=== PATIENT | male | born 1980 | race Caucasian/White ===

== ENCOUNTER 2023-12-04 12:35 | Emergency (ER) | payer BC, SELFPAY ==
[2023-12-04 12:44] VITALS: BP 149/89; PULSE 110; TEMP 36.7; O2SAT 97; BMI 30.5
[2023-12-04 13:07] VITALS: BP 142/96; PULSE 111; O2SAT 98
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
[2023-12-04] MEDS: ondansetron 2 mg/ML SDV 2 mL 4 MG IVP (13:32)
[2023-12-04 13:33] VITALS: RESP 16; O2SAT 97
[2023-12-04] MEDS: morphine 4 mg/mL SDV 1 mL IVP (13:33)
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
[2023-12-04] MEDS: iohexol 350 mg/mL 500 mL Btl (per mL) IV (13:48)
[2023-12-04 14:07] VITALS: BP 168/109; PULSE 102; O2SAT 96
[2023-12-04 15:06] VITALS: BP 168/109; PULSE 102; RESP 16; TEMP 36.7; O2SAT 96
== END 2023-12-04 15:07 | disposition home or self-care (01) ==
PROVIDERS: Emergency Provider Emergency Medicine
DX: S20.212A Contusion of left front wall of thorax, initial encounter (principal); S80.812A Abrasion, left lower leg, initial encounter; S80.811A Abrasion, right lower leg, initial encounter; S40.812A Abrasion of left upper arm, initial encounter; S40.811A Abrasion of right upper arm, initial encounter; S70.11XA Contusion of right thigh, initial encounter; V89.2XXA Person injured in unspecified motor-vehicle accident, traffic, initial encounter
CPT/HCPCS: 71260; 73552; 96374; 96375; 99285; J2270; J2405; Q9967